=== PATIENT | male | born 1955 | race African-American/Black ===

== ENCOUNTER 2017-12-29 19:33 | Emergency (ER) | payer BC, OTHER ==
[~2017-12-29] VITALS: Ht 188 cm; Wt 99.8 kg
[2017-12-29 19:56] VITALS: BP 147/96
[2017-12-29] MEDS ORDERED: cefTRIAXone SOD 1,000 MG VL IM ONE (22:30)
[2017-12-29] MEDS ORDERED: DERMOPLAST 60ML BOTTLE TOP ONE (23:00)
== END 2017-12-29 23:21 | disposition home or self-care (01) ==
LOC: ER 19:33
DX: S80.02XA Contusion of left knee, initial encounter (principal); S50.312A Abrasion of left elbow, initial encounter; R25.2 Cramp and spasm; V29.9XXA Motorcycle rider (driver) (passenger) injured in unspecified traffic accident, initial encounter; Y93.89 Activity, other specified; Y92.488 Other paved roadways as the place of occurrence of the external cause; Y99.8 Other external cause status
CPT/HCPCS: 29505; 73552; 73562; 73610; 73620; 96372; 99284; J0696